=== PATIENT | female | born 1940 | race Caucasian/White ===

== ENCOUNTER 2016-09-09 18:45 | Emergency (ER) | payer MEDICARE, OTHER ==
[~2016-09-09] VITALS: Ht 167.6 cm; Wt 83.6 kg
[~2016-09-09 18:45] MED LIST: ASPI-973 PO; KETO5DRO14 RIGHT_EYE; LIRA3PEN SQ; OFLO5DRO9 RIGHT_EYE; OMEP20CA11 PO; PRED5DRO6 RIGHT_EYE; ROSU5TAB PO; SITA100T12 PO; TELM20TA PO
[2016-09-09 18:51] VITALS: BP 120/69; PULSE 108; RESP 24; O2SAT 94
[2016-09-09] MEDS ORDERED: 0.9% Sodium Chloride 1,000 ML IV ONE (19:16)
--- NOTE | 2016-09-09 19:18 | ED.REPORT ---
HPI-Abd Pain F 40 and Over Date of Service Sep 09, 2016 ED Provider: Siva Walton MD Pt is a 75 year old female w/ a hx of HTN, GERD, DM, asthma, and dyslipidemia who presents to the ED due to dysuria onset 3 days ago. Associated symptoms include chills, fever, 1 episode of vomiting, nausea, and diarrhea. She is currently feeling better. Patient denies side pain and SOB. Dr. Trung San is her PCP. She lives by herself. Nursing Notes Stated Complaint: PAINFUL URINATION, NAUSEA, BODY ACHES Chief Complaint: Female Abdominal Pain Nursing Notes Reviewed: Yes Allergies: Coded Allergies: metformin (Verified Adverse Reaction, Intermediate, BACK PAIN, 01/28/15) lactose (Verified Adverse Reaction, Unknown, GI Distress, 01/28/15) oxycodone (Verified Adverse Reaction, Unknown, Bad Dreams, 01/28/15) Scheduled Aspirin (Aspirin) 81 Mg Tablet 81 MG PO MORNING Cephalexin (Cephalexin) 500 Mg Capsule 500 MG PO QID Ketorolac Tromethamine (Ketorolac Tromethamine) 5 Ml Drops 1 DROP RIGHT_EYE QID Liraglutide (Saxenda) 3 Mg/0.5 Ml (18 Mg/3 Ml) Pen.injctr 1.8 MCG SQ MORNING Ofloxacin (Ofloxacin) 5 Ml Drops 1 DROP RIGHT_EYE QID Ondansetron ODT (Ondansetron ODT) 4 Mg Tab.rapdis 4 MG PO QID Prednisolone Acetate (Prednisolone Acetate) 5 Ml Drops.susp 1 DROP RIGHT_EYE QID Rosuvastatin Calcium (Crestor) 5 Mg Tablet 5 MG PO MORNING Sitagliptin Phos (Januvia) 100 Mg Tablet 100 MG PO MORNING Telmisartan (Micardis) 20 Mg Tablet 20 MG PO MORNING Scheduled PRN Omeprazole (Omeprazole) 20 Mg Capsule.dr 20 MG PO DAILY PRN PRN For Indigestion General Time Seen by MD: 19:16 Chief Complaint Dysuria Hx Obtained From: Patient Arrived By: Walk-in Sudden in Onset?: Yes Onset Occurred: 4 days ago Symptom Duration: Since onset Progression since Onset: Gradually worsening Severity: Current: Moderate Recent Healthcare: No recent doctor visit, No recent hospitalization Similar Sx Previous: No Past Medical History Past Medical History 1. Hypertension. 2. Type 2 diabetes mellitus. 3. Dyslipidemia. 4. EGD (April 21, 2012) showed diffuse antral gastritis with coffee-ground material. 5. Asthma Reports: GERD Past Surgical History Bladder repair Colonoscopy (July 31, 2005) revealed a polyp that was snared. Knee surgery Reports: Cataract surgery, Hysterectomy Family History Family history is extensively positive for coronary artery disease. The patient has two brothers who had acute coronary syndrome presentations prior to age 60. Her mother had type 2 diabetes mellitus and extensive heart disease. Smoking History Never Smoker Social History Alcohol Use: "Social" Drug Use: Denies drug use Other Social History: Lives alone, College student Ambulatory Status Independent Review of Systems Constitutional: Reports: Chills, Fever Respiratory: Denies: Shortness of breath GI: Reports: Diarrhea, Nausea, Vomiting, Denies: Abdominal pain Female: Reports: Dysuria Complete sys rev & neg: except as marked. Physical Exam Physical Exam Notes: 37.9 C temperature Vital Signs Vital Signs (First) Date Time Temp Pulse Resp B/P Pulse Ox O2 Delivery O2 Flow Rate FiO2 09/09/16 18:51 37.8 108 24 120/69 94 Room Air Initial VS: Reviewed Head / Eyes: Atraumatic, Normocephalic, PERRL ENT: Mucous membranes moist, Conjunctiva normal, No scleral icterus Neck: Supple, Non-tender, Full range of motion Extremities: Vascular intact, Neuro intact, No swelling, No tenderness Skin: Warm, Dry, No cyanosis Neurologic: Alert, Oriented, Nonfocal Psychiatric: Mood/affect normal, Behavior normal, Normal thought content General/Constitutional: Awake, Alert, Cooperative Respiratory / Chest: Atraumatic, Breath sounds NL, Breath sounds = bilat, No respiratory distress, No rales, No rhonchi, No wheezing, No retractions Cardiovascular: No gallop, No murmurs, No rubs Heart Rate / Rhythm: Positive: Tachycardia Abdomen: Atraumatic, Soft, Non-tender, No guarding, No rebound, BS normoactive Back: Atraumatic, Inspection NL, Full range of motion, Painless range of motion , Non-tender, No midline vertebral tend, No CVA tenderness Neck: Atraumatic, Supple Interpretation & Diagnostics Lab Results Interpretation Result Diagram: 09/09/16201909/09/16 2020 Test 09/09/16 19:10 09/09/16 20:20 09/09/16 21:00 Urine Color Yellow (YELLOW) Urine Appearance Cloudy (CLEAR,HAZY) Urine pH 6.0 (5.0-8.0) Urine Specific [place] 1.025 (1.003-1.035) Urine Protein 100mg/dL (NEG,TRACE) Urine Glucose (UA) Negativemg/dL (NEGATIVE) Urine Ketones 15mg/dL (NEGATIVE) Urine Occult Blood Large (NEGATIVE) Urine Nitrite Positive (NEGATIVE) Urine Bilirubin Small (NEGATIVE) Urine Ictotest Positive (Negative) Urine Urobilinogen Normalmg/dL (NORMAL) Urine Leukocyte Esterase Moderate (NEGATIVE) Urine RBC 11-50/hpf (0-2) Urine WBC Packed/hpf (0-5) Urine Epithelial Cells Occasional/hpf (NONE-MOD) Urine Crystals None seen (NONE SEEN) Urine Bacteria Moderate/hpf (NONE-FEW) Urine Hyaline Casts None/lpf (NONE) Urine Granular Casts None seen (NONE SEEN) Urine Waxy Casts None seen (NONE SEEN) Urine Red Blood Cell Casts None seen (NONE SEEN) Urine White Blood Cell Casts None seen (NONE SEEN) Urine Mucus None seen (None Seen) Urine Trichomonas None seen (NONE SEEN) Urine Yeast None (NONE SEEN) Urinalysis Comment None Urine Culture Reflexed Indicated White Blood Count 7.7th/mm3 (3.8-10.1) Red Blood Count 4.95mil/mm3 (3.90-5.20) Hemoglobin 14.2g/dL (12.0-15.6) Hematocrit 41.3% (35.0-46.0) Mean Corpuscular Volume 83.4fL (81-100) Mean Corpuscular Hemoglobin 28.7pg (27.0-35.0) Mean Corpuscular Hemoglobin Concent 34.4% (32.0-37.0) Red Cell Distribution Width 12.4% (12.3-15.4) Platelet Count 144bil/L (150-400) Neutrophils (%) (Auto) 77.8% (40-74) Lymphocytes (%) (Auto) 13.3% (14-46) Monocytes (%) (Auto) 8.7% (4-12) Eosinophils (%) (Auto) 0% (0-5) Basophils (%) (Auto) 0.1% (0-3) Sodium Level 134mEq/L (134-144) Potassium Level 4.5mEq/L (3.5-5.2) Chloride Level 97mEq/L (97-108) Carbon Dioxide Level 20mmol/L (18-29) Blood Urea Nitrogen 19mg/dL (8-27) Creatinine 0.97mg/dL (0.57-1.00) Estimat Glomerular Filtration Rate 81mL/min (>59) Glucose Level 218mg/dL (60-99) Calcium Level 9.1mg/dL (8.5-10.1) Magnesium Level 1.9mg/dL (1.6-2.6) Total Bilirubin 1.2mg/dL (0.0-1.2) Aspartate Amino Transf (AST/SGOT) 19U/L (0-50) Alanine Aminotransferase (ALT/SGPT) 22U/L (0-32) Alkaline Phosphatase 97U/L (25-165) Total Protein 7.2g/dL (6.4-8.4) Albumin 4.1g/dL (3.4-5.0) Lactic Acid Level 1.1mmol/L (0.4-2.0) X-Ray Chest Interpretation Chest Xray Interpretation: IMPRESSION: No acute cardiopulmonary disease. Dictated by: Kei Huerta M.D. on 09/09/2016 at 19:36 Approved by: Kei Huerta M.D. on 09/09/2016 at 19:36 View: Portable Interpretation / Wet Read by: Interpret - Radiologist Re-Eval/Medical Decision Med Decision/Clinical Course 75-year-old female with urinary tract infection. She does have a mild fever, she appears well and very much wants to go home. Lactate is normal vital signs are reassuring. She is received Rocephin 2 g IV and will be treated with oral Keflex. Re-Evaluation/Progress : Time of Eval: 22:00 Re-Evaluation/Progress Note: Pt rechecked. Informed pt of diagnosis of UTI and plan for treatment. F/U and RTER warnings given. Pt understands and agrees with plan. Counseled Regarding: Diagnosis, Lab results, Need for follow-up, When/why to return to ED Discharge & Departure Primary Impression: Urinary tract infection Urinary tract infection type: site unspecified Hematuria presence: without hematuria Qualified Code: N39.0 - Urinary tract infection, site not specified Disposition: Home Discharge Condition All VS Reviewed: Yes Condition: Stable Patient Instructions: Urinary Tract Infection in Women (ED) Additional Instructions: Emergency department evaluation today included labs and ECG. You have a urinary tract infection. I have given you an antibiotic prescription for 1 week of cephalexin to start tomorrow. I have also given you ondansetron for nausea. Check in with your sister every day. Get plenty of fluids and rest, take Tylenol as needed. Do no hesitate to come back to the Emergency Department if you are getting worse. Referrals: Ant San MD (PCP) Scribe Attestation Portion of this note were transcribed by Ana Camargo. I, Dr. Walton, personally performed the history, physical exam, and medical decision-making: I reviewed and confirmed the accuracy for the information in the transcribed note. Signed by: jonna Montesinos, 09/09/16 2100 copies to: Ant San MD, Donald L MD Sep 09, 2016 19:18 Ana Camargo Sep 09, 2016 20:34
[2016-09-09] MEDS ORDERED: Ondansetron 2 mg/mL 2 mL Inj IV PRN (19:20)
[2016-09-09 19:35] LABS: APPEARANCE,URINE CLOUDY (CLEAR,HAZY); COLOR,URINE YELLOW (YELLOW); OCCULT BLOOD,URINE LARGE (NEGATIVE); UROBILINOGEN,URINE NORMAL (NORMAL)
[2016-09-09 19:36] LABS: ICTOTEST,URINE POSITIVE (Negative)
--- NOTE | 2016-09-09 19:37 | DRSVH ---
PROCEDURE: X-RAY CHEST ONE VIEW, PORTABLE ([id number]) INDICATIONS: 75-year-old female with tachycardia and fever. TECHNIQUE: One view of the chest was acquired. COMPARISON: [facility], CR, XR CHEST 1VW (PORTABLE), 01/28/2015, 11:28. FINDINGS: Surgical changes and devices: None. Lungs and pleura: No pleural effusions or pneumothorax. Lungs are clear. Mediastinum: Mediastinal contours appear normal. Heart size is normal. Bones and chest wall: No suspicious bony lesions. Overlying soft tissues appear unremarkable. IMPRESSION: No acute cardiopulmonary disease. Dictated by: Kei Huerta M.D. on 09/09/2016 at 19:36 Approved by: Kei Huerta M.D. on 09/09/2016 at 19:36
[2016-09-09 20:50] LABS: BASOPHILS % (AUTO) 0.1 % (0-3); EOSINOPHILS % (AUTO) 0 % (0-5); MONOCYTES % (AUTO) 8.7 % (4-12); Mean Corpuscular Hemoglobin 28.7 pg (27.0-35.0); Mean Corpuscular Volume 83.4 fL (81-100); NEUTROPHILS % (AUTO) 77.8 % (40-74); Platelet Count 144 bil/L (150-400)
[2016-09-09] MEDS ORDERED: cefTRIAXone Inj 2,000 MG in Dextrose 5% Minibag Plus 50 ML IV ONE (21:05)
[2016-09-09 21:29] LABS: Magnesium 1.9 mg/dL (1.6-2.6)
[2016-09-09] MEDS ORDERED: ONDA4TAB12 PO (22:02)
[2016-09-09] MEDS ORDERED: CEPH500C PO (22:02)
[2016-09-09 22:03] VITALS: BP 119/65; PULSE 95; RESP 16; O2SAT 98
[2016-09-09 22:37] VITALS: BP 119/65; RESP 16; O2SAT 98
== END 2016-09-09 22:39 | disposition home or self-care (01) ==
LOC: SED 18:45
DX: N39.0 Urinary tract infection, site not specified (principal); B96.20 Unspecified Escherichia coli [E. coli] as the cause of diseases classified elsewhere; I10 Essential (primary) hypertension; E11.9 Type 2 diabetes mellitus without complications; K21.9 Gastro-esophageal reflux disease without esophagitis; Z79.82 Long term (current) use of aspirin; Z88.5 Allergy status to narcotic agent; Z88.8 Allergy status to other drugs, medicaments and biological substances
CPT/HCPCS: 36415; 71010; 80053; 81000; 83605; 83735; 85025; 87040; 87077; 87086; 87088; 87186; 96361; 96365; 96375; 99285; J0696; J2405; J7030